=== PATIENT | male | born 1970 | race African-American/Black ===

== ENCOUNTER 2017-07-27 15:40 | Emergency (ER) | payer SELFPAY ==
[~2017-07-27] VITALS: Ht 177.8 cm; Wt 122.0 kg
[2017-07-27 17:15] VITALS: BP 117/70
[2017-07-27] MEDS ORDERED: IBUPROFEN 600MG TABLET PO ONE (17:15)
== END 2017-07-27 17:45 | disposition home or self-care (01) ==
LOC: ER 15:40
DX: S19.9XXA Unspecified injury of neck, initial encounter (principal); M25.521 Pain in right elbow; M54.5 Low back pain; X58.XXXA Exposure to other specified factors, initial encounter; Y93.89 Activity, other specified; Y99.8 Other external cause status; Y92.89 Other specified places as the place of occurrence of the external cause; Z98.890 Other specified postprocedural states
CPT/HCPCS: 72125; 73070; 99284